=== PATIENT | female | born 1965 | race Caucasian/White ===

== ENCOUNTER 2016-10-25 12:11 | Inpatient (IN) | payer OTHER ==
[~2016-10-25] VITALS: Ht 170.2 cm; Wt 73.8 kg
[2016-10-25] MEDS ORDERED: ONDANSETRON (ODT) 4 MG TAB ODT STA (13:21)
[2016-10-25] MEDS ORDERED: HYDROCODONE/APAP (5/325) TAB PO ONE (13:30)
--- NOTE | 2016-10-25 14:36 | RADRPT ---
PROCEDURE: XR Sacrum and Coccyx. CLINICAL INDICATION: Trauma TECHNIQUE: AP and lateral views of the sacrum and coccyx were performed. COMPARISON: No prior studies are available for comparison. FINDINGS: There is a likely comminuted minimally displaced fracture at the left pubic body near the symphysis pubis. The SI joints are otherwise maintained and the visualized portions of the sacrum and coccyx are intact. IMPRESSION: 1. Minimally comminuted and minimally displaced fracture at the left pubic body. RPTAT: EE .Chemo Perdomo MD, MD Date Time Electronically viewed and signed by .Chemo Perdomo MD, on 10/25/2016 14:36 .d/
--- NOTE | 2016-10-25 14:37 | RADRPT ---
PROCEDURE: XR left Hip. CLINICAL INDICATION: Hip pain TECHNIQUE: AP and frog lateral views of the left hip were performed. COMPARISON: None. FINDINGS: There is a likely comminuted minimally displaced fracture at the left pubic body near the symphysis pubis. There is mild left hip arthrosis. Mild post-traumatic deformity of the femoral head versus remodelling. IMPRESSION: 1. Minimally comminuted and minimally displaced fracture at the left pubic body. 2. 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 3. Consider CT of the pelvis to exclude additional fractures. RPTAT: EE .Chemo Perdomo MD, MD Date Time Electronically viewed and signed by .Chemo Perdomo MD, on 10/25/2016 14:37 .d/
--- NOTE | 2016-10-25 14:38 | RADRPT ---
PROCEDURE: XR Elbow. CLINICAL INDICATION: Double pain TECHNIQUE: Three views of the left elbow are available for review COMPARISON: None available FINDINGS: There is a remote, ununited fracture of the olecranon process with sclerosis at the joint margins. The radiocapitellar articulation is maintained with marginal osteophytes at the margins. There is a lso osteophyte formation at the ulnohumeral articulation. A trace elbow joint effusion is present. IMPRESSION: 1. Remote, ununited and minimally displaced fracture of the olecranon process. 2. No definite acute fracture. 3. Mild degenerative changes at the elbow joint. RPTAT: EE .Chemo Perdomo MD, Date Time Electronically viewed and signed by .Chemo Perdomo MD, MD on 10/25/2016 14:37 .d/
--- NOTE | 2016-10-25 14:39 | RADRPT ---
PROCEDURE: pelvis. CLINICAL INDICATION: Fall TECHNIQUE: A single AP view the pelvis. COMPARISON: None FINDINGS: There is a likely comminuted minimally displaced fracture at the left pubic body near the symphysis pubis. There is mild left hip arthrosis. The right hip joint is maintained. Mild post-traumatic or surgical deformity of the femoral head versus remodelling. IMPRESSION: 1. Minimally comminuted and minimally displaced fracture at the left pubic body. 2. 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 3. Consider CT of the pelvis to exclude additional fractures. RPTAT: EE .Chemo Perdomo MD, Date Time Electronically viewed and signed by .Chemo Perdomo MD, on 10/25/2016 14:38 .d/
[2016-10-25] MEDS ORDERED: morphine 4 MG/ML VIAL IV STA (14:43)
[2016-10-25] MEDS ORDERED: ONDANSETRON 4 MG INJ IV STA (14:43)
[2016-10-25 15:54] LABS: ADD SCAN DIFF NO
[2016-10-25 15:56] LABS: BASOPHILS % 0.5 % (0.0-2.0); EOSINOPHILS # 0.2 10^3/ul (0.0-0.5); HEMATOCRIT 37.3 % (37.0-47.0); HEMOGLOBIN 11.8 g/dl (12.0-16.0); LYMPHOCYTES # 1.7 10^3/ul (0.8-2.9); LYMPHOCYTES % 21.6 % (15.0-51.0); MEAN CORPUSCULAR HEMOGLOBIN 31.2 pg (29.0-33.0); MEAN CORPUSCULAR HGB CONC 31.6 g/dl (32.0-37.0); MEAN CORPUSCULAR VOLUME 98.7 fl (82.0-101.0); MEAN PLATELET VOLUME 9.9 fl (7.4-10.4); MONOCYTE # 1.2 10^3/ul (0.3-0.9); MONOCYTES % 15.9 % (0.0-11.0); NEUTROPHIL # 4.6 10^3/ul (1.6-7.5); NEUTROPHILS % 59.7 % (39.0-77.0); PLATELET COUNT 279 10^3/UL (140-415); RED BLOOD COUNT 3.78 10^6/ul (4.20-5.40); RED CELL DISTRIBUTION WIDTH 13.2 % (11.5-14.5); WHITE BLOOD COUNT 7.7 10^3/ul (4.8-10.8)
--- NOTE | 2016-10-25 15:58 | RADRPT ---
PROCEDURE: Chest x-ray CLINICAL INDICATION: Preop TECHNIQUE: Chest single view COMPARISON: None FINDINGS: The heart is normal in size. The pulmonary vessels are normal in caliber. The lungs are clear. Th e costophrenic angles are sharp. The visualized bony thorax is unremarkable. IMPRESSION: No acute cardiopulmonary disease. RPTAT: HH .Natan Contreras MD, Date Time Electronically viewed and signed by .Natan Contreras MD, MD on 10/25/2016 15:58 .W/
[2016-10-25 16:26] LABS: INR 0.94; PARTIAL THROMBOPLASTIN TIME 28.6 Sec (25.0-35.0); PROTIME 12.6 Sec (12.2-14.2)
[2016-10-25 16:34] LABS: CALCIUM 9.4 mg/dl (8.4-10.2); CREATININE 0.64 mg/dl (0.44-1.00)
--- NOTE | 2016-10-25 17:09 | ERA ---
ER Documentation Chief Complaint Date/Time DATE: 10/25/16 TIME: 17:02 Chief Complaint gate fell on top of her 2 days ago, has back pain HPI This patient is a 51-year-old female with no significant medical history presenting to the emergency department for a gait falling on top of her to swap meet approximately 2 days ago. The gate fell onto her left hip and left elbow. She has been taking no medication for relief of symptoms at home. She is unable to ambulate well secondary to pain. The patient denies head injury or loss of consciousness. There are no other symptoms to report currently. ROS All systems reviewed and are negative except as per history of present illness. Medications Home Meds No Active Prescriptions or Reported Meds Allergies Allergies: Coded Allergies: Penicillins (Verified Allergy, Mild, 10/25/16) PMhx/Soc History of Surgery: Yes (right arm surgery) Anesthesia Reaction: No Hx Neurological Disorder: No Hx Respiratory Disorders: No Hx Cardiac Disorders: No Hx Psychiatric Problems: No Hx Miscellaneous Medical Probl: Yes (bulging disk) Hx Alcohol Use: Yes (drinka alcohol everyday) Hx Substance Use: No Hx Tobacco Use: No Smoking Status: Never smoker FmHx Noncontributory for chief complaint Physical Exam Vitals Vital Signs Date Time Temp Pulse Resp B/P Pulse Ox O2 Delivery O2 Flow Rate FiO2 10/25/16 12:34 98.6 99 20 128/80 99 Physical Exam Const: The patient is wheelchair-bound and appears to be in acute pain. Head: Atraumatic Eyes: Normal Conjunctiva ENT: Normal External Ears, Nose and Mouth. Neck: Full range of motion..~ No meningismus. Resp: Clear to auscultation bilaterally Cardio: Regular rate and rhythm, no murmurs Abd: Soft, non tender, non distended. Normal bowel sounds Skin: No petechiae or rashes Back: No midline or flank tenderness Ext: Unable to range of motion the left lower extremity secondary to pain. There is tenderness palpation of the left hip. There is tenderness to palpation of the left elbow and decreased range of motion secondary to pain. Neur: Awake and alert Psych: Normal Mood and Affect Result Diagram: 10/25/16 1535 10/25/16 1535 Results 24 hrs Laboratory Tests Test 10/25/16 15:35 White Blood Count 7.710^3/ul Red Blood Count 3.7810^6/ul Hemoglobin 11.8g/dl Hematocrit 37.3% Mean Corpuscular Volume 98.7fl Mean Corpuscular Hemoglobin 31.2pg Mean Corpuscular Hemoglobin Concent 31.6g/dl Red Cell Distribution Width 13.2% Platelet Count 83160^3/UL Mean Platelet Volume 9.9fl Neutrophils % 59.7% Lymphocytes % 21.6% Monocytes % 15.9% Eosinophils % 2.0% Basophils % 0.5% Nucleated Red Blood Cells % 0.0/100WBC Neutrophils # 4.610^3/ul Lymphocytes # 1.710^3/ul Monocytes # 1.210^3/ul Eosinophils # 0.210^3/ul Basophils # 0.010^3/ul Nucleated Red Blood Cells # 0.010^3/ul Prothrombin Time 12.6Sec Prothrombin Time Ratio 1.0 INR International Normalized Ratio 0.94 Activated Partial Thromboplast Time 28.6Sec Sodium Level 141mmol/L Potassium Level 4.0mmol/L Chloride Level 102mmol/L Carbon Dioxide Level 29mmol/L Anion Gap 14 Blood Urea Nitrogen 9mg/dl Creatinine 0.64mg/dl Glucose Level 119mg/dl Calcium Level 9.4mg/dl Current Medications Medications (Trade) Dose Ordered Sig/Fazal Route PRN Reason Start Time Stop Time Status Last Admin Dose Admin Acetaminophen/ Hydrocodone Bitart ([place] (5/325)) 1 tab ONCE ONCE PO 10/25/16 13:30 10/25/16 13:31 DC 10/25/16 13:45 Ondansetron HCl (Zofran Odt) 4 mg ONCE STAT ODT 10/25/16 13:21 10/25/16 13:24 DC 10/25/16 13:43 Morphine Sulfate (morphine) 4 mg ONCE STAT IV 10/25/16 14:43 10/25/16 14:45 DC 10/25/16 15:28 Ondansetron HCl (Zofran Inj) 4 mg ONCE STAT IV 10/25/16 14:43 10/25/16 14:45 DC 10/25/16 15:27 Procedures/MDM EMERGENCY DEPARTMENT COURSE / MEDICAL DECISION MAKING: This is a 51-year-old female who comes to the emergency room secondary to complaints of left hip and left elbow pain The patient was given p.o. Charlotte and IV morphine in the department. On re- evaluation, the patient was feeling improved. Lab results reviewed and showed no significant acute abnormalities. Radiology: PROCEDURE: Chest x-ray CLINICAL INDICATION: Preop TECHNIQUE: Chest single view COMPARISON: None FINDINGS: The heart is normal in size. The pulmonary vessels are normal in caliber. The lungs are clear. The costophrenic angles are sharp. The visualized bony thorax is unremarkable. IMPRESSION: No acute cardiopulmonary disease. RPTAT: HH .Natan Contreras MD, Date Time Electronically viewed and signed by .Natan Contreras MD, MD on 10/25/2016 15:58 .W/ CC: NIKIA CID PA-C PROCEDURE: XR Elbow. CLINICAL INDICATION: Double pain TECHNIQUE: Three views of the left elbow are available for review COMPARISON: None available FINDINGS: There is a remote, ununited fracture of the olecranon process with sclerosis at the joint margins. The radiocapitellar articulation is maintained with marginal osteophytes at the margins. There is also osteophyte formation at the ulnohumeral articulation. A trace elbow joint effusion is present. IMPRESSION: 1. Remote, ununited and minimally displaced fracture of the olecranon process. 2. No definite acute fracture. 3. Mild degenerative changes at the elbow joint. RPTAT: EE .Chemo Perdomo MD, MD Date Time Electronically viewed and signed by .Chemo Perdomo MD, MD on 10/25/2016 14:37 .d/ CC: NIIKA CID PA-C PROCEDURE: XR left Hip. CLINICAL INDICATION: Hip pain TECHNIQUE: AP and frog lateral views of the left hip were performed. COMPARISON: None. FINDINGS: There is a likely comminuted minimally displaced fracture at the left pubic body near the symphysis pubis. There is mild left hip arthrosis. Mild post- traumatic deformity of the femoral head versus remodelling. IMPRESSION: 1. Minimally comminuted and minimally displaced fracture at the left pubic body. 2. 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 3. Consider CT of the pelvis to exclude additional fractures. RPTAT: EE .Chemo Perdomo MD, MD Date Time Electronically viewed and signed by .Chemo Perdomo MD, MD on 10/25/2016 14:37 .d/ CC: NIKIA CID PA-C PROCEDURE: pelvis. CLINICAL INDICATION: Fall TECHNIQUE: A single AP view the pelvis. COMPARISON: None FINDINGS: There is a likely comminuted minimally displaced fracture at the left pubic body near the symphysis pubis. There is mild left hip arthrosis. The right hip joint is maintained. Mild post-traumatic or surgical deformity of the femoral head versus remodelling. IMPRESSION: 1. Minimally comminuted and minimally displaced fracture at the left pubic body. 2. 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 3. Consider CT of the pelvis to exclude additional fractures. RPTAT: EE .Chemo Perdomo MD, MD Date Time Electronically viewed and signed by .Chemo Perdomo MD, MD on 10/25/2016 14:38 .d/ CC: NIKIA CID PA-C PROCEDURE: XR Sacrum and Coccyx. CLINICAL INDICATION: Trauma TECHNIQUE: AP and lateral views of the sacrum and coccyx were performed. COMPARISON: No prior studies are available for comparison. FINDINGS: There is a likely comminuted minimally displaced fracture at the left pubic body near the symphysis pubis. The SI joints are otherwise maintained and the visualized portions of the sacrum and coccyx are intact. IMPRESSION: 1. Minimally comminuted and minimally displaced fracture at the left pubic body. RPTAT: EE .Chemo Perdomo MD, Date Time Electronically viewed and signed by .Chemo Perdomo MD, MD on 10/25/2016 14:36 .d/ CC: NIKIA CID PA-C EKG: Interpreted by ED physician Rate/Rhythm: Normal sinus rhythm with a rate of 91 bpm. QRS, ST, T-waves: No changes consistent w/ acute ischemia Impression: No evidence of ischemia or arrhythmia The primary diagnosis is pubic fracture. Secondary diagnosis is left sided olecranon fracture I have low suspicion for hip fracture, hip dislocation, septicemia, or other emergent conditions at this time. Discharge: I have discussed the lab results and diagnostic findings with the patient and answered any questions or concerns. The patient was admitted. Dr. León Hoffmann, attending ED physician spoke with the admitting physician. I consulted Dr. Tapia, on-call orthopedic surgeon who recommended keeping the left arm straight. He agreed with the ED course up until this point. Departure Diagnosis: Primary Impression: Pubic bone fracture Additional Impression: Closed olecranon fracture Condition: Fair NIKIA CID PA-C Oct 25, 2016 17:09 NIKIA CID PA-C Oct 25, 2016 17:09
[2016-10-25 17:34] VITALS: TEMP 98.1
[2016-10-25 17:55] VITALS: BP 120/74; PULSE 89; RESP 16; Ht 170.2 cm; Wt 73.8 kg
[2016-10-25] MEDS: morphine 2 MG INJ IV PRN ×2 (18:18→23:18)
[2016-10-25] MEDS ORDERED: ONDANSETRON 4 MG INJ IV PRN (18:30)
--- NOTE | 2016-10-25 18:42 | HP ---
Date/Time of Note Date/Time of Note DATE: 10/25/16 TIME: 18:10 Assessment/Plan VTE Prophylaxis VTE Prophylaxis Intervention: ambulation, SCD's Lines/Catheters IV Catheter Type (from Nrsg): Saline Lock Assessment/Plan Assessment/Plan 51 yo F who presented with L vulval pain after a gate fell on her with 1. L pubic rami fracture 2. Remote, ununited and minimally displaced fracture of the olecranon process. 3. Vulval /L hip pain 2/2 #1 PLAN: * admit for pain control and ortho review / supportive care HPI/ROS Admit Date/Time Admit Date/Time Oct 25, 2016 at 15:55 Hx of Present Illness PRESENTING COMPLAINT: L vulval pain and elbow pain HISTORY OF PRESENTING COMPLAINT: 51 yo F was at a swap meet and was trying to close a gate when the gate fell on her. She developed severe pain in L vulval area relieved only by IV meds given in ER. She is able to ambulate but with significant difficulty. ROS Constitutional: No chills, No febrile, No nausea, No poor po Eyes: no complaints ENT: no complaints Respiratory: no complaints Cardiovascular: no complaints Gastrointestinal: no complaints Genitourinary: no complaints Musculoskeletal: other (see hpi) Neurologic: no complaints PMH/Family/Social Past Medical History Medical History: no pertinent history Past Surgical History * Sx to R forearm Family History Significant Family History: no pertinent family hx Social History Alcohol Use: none Smoking Status: Never smoker Drug Use: none Exam/Review of Systems Vital Signs Vitals VS - Last 72 Hours, by Label Date Time Temp Pulse Resp B/P Pulse Ox O2 Delivery O2 Flow Rate FiO2 10/25/16 17:34 98.1 98 18 123/79 99 Room Air 10/25/16 12:34 98.6 99 20 128/80 99 Vital Signs Date Time Temp Pulse Resp B/P Pulse Ox O2 Delivery O2 Flow Rate FiO2 10/25/16 17:34 98.1 98 18 123/79 99 Room Air Exam Constitutional: alert, distress, oriented Psych: nl mood/affect Head: atraumatic, normocephalic Eyes: PERRL, No icteric ENMT: mucosa pink and moist Neck: supple Respiratory: clear to auscultation, normal air movement Cardiovascular: regular rate and rhythm, No murmurs/extra sounds Gastrointestinal: bowel sounds, non-tender, soft Extremities: No edema Neurological: nl mental status, nl speech, No focal weakness Skin: No rash or lesions Labs Result Diagram: 10/25/16 1535 10/25/16 1535 Procedures Procedures PROCEDURE: Chest x-ray CLINICAL INDICATION: Preop TECHNIQUE: Chest single view COMPARISON: None FINDINGS: The heart is normal in size. The pulmonary vessels are normal in caliber. The lungs are clear. The costophrenic angles are sharp. The visualized bony thorax is unremarkable. IMPRESSION: No acute cardiopulmonary disease. RPTAT: HH .Natan Contreras MD, Date Time Electronically viewed and signed by .Natan Contreras MD, MD on 10/25/2016 15:58 .W/ PROCEDURE: XR Elbow. CLINICAL INDICATION: Double pain TECHNIQUE: Three views of the left elbow are available for review COMPARISON: None available FINDINGS: There is a remote, ununited fracture of the olecranon process with sclerosis at the joint margins. The radiocapitellar articulation is maintained with marginal osteophytes at the margins. There is also osteophyte formation at the ulnohumeral articulation. A trace elbow joint effusion is present. IMPRESSION: 1. Remote, ununited and minimally displaced fracture of the olecranon process. 2. No definite acute fracture. 3. Mild degenerative changes at the elbow joint. RPTAT: EE .Chemo Perdomo MD, MD Date Time Electronically viewed and signed by .hCemo Perdomo MD, MD on 10/25/2016 14:37 .d/ PROCEDURE: XR left Hip. CLINICAL INDICATION: Hip pain TECHNIQUE: AP and frog lateral views of the left hip were performed. COMPARISON: None. FINDINGS: There is a likely comminuted minimally displaced fracture at the left pubic body near the symphysis pubis. There is mild left hip arthrosis. Mild post- traumatic deformity of the femoral head versus remodelling. IMPRESSION: 1. Minimally comminuted and minimally displaced fracture at the left pubic body. 2. 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 3. Consider CT of the pelvis to exclude additional fractures. RPTAT: EE .Chemo Perdomo MD, MD Date Time Electronically viewed and signed by .Chemo Perdomo MD, MD on 10/25/2016 14:37 .d/ PROCEDURE: pelvis. CLINICAL INDICATION: Fall TECHNIQUE: A single AP view the pelvis. COMPARISON: None FINDINGS: There is a likely comminuted minimally displaced fracture at the left pubic body near the symphysis pubis. There is mild left hip arthrosis. The right hip joint is maintained. Mild post-traumatic or surgical deformity of the femoral head versus remodelling. IMPRESSION: 1. Minimally comminuted and minimally displaced fracture at the left pubic body. 2. 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 3. Consider CT of the pelvis to exclude additional fractures. RPTAT: EE .Chemo Perdomo MD, Date Time Electronically viewed and signed by .Chemo Perdomo MD, MD on 10/25/2016 14:38 .d/ CC: NIKIA CID PA-Link PROCEDURE: XR Sacrum and Coccyx. CLINICAL INDICATION: Trauma TECHNIQUE: AP and lateral views of the sacrum and coccyx were performed. COMPARISON: No prior studies are available for comparison. FINDINGS: There is a likely comminuted minimally displaced fracture at the left pubic body near the symphysis pubis. The SI joints are otherwise maintained and the visualized portions of the sacrum and coccyx are intact. IMPRESSION: 1. Minimally comminuted and minimally displaced fracture at the left pubic body. RPTAT: EE .Chemo Perdomo MD, MD Date Time Electronically viewed and signed by .Chemo Perdomo MD, MD on 10/25/2016 14:36 .d/ CC: NIKIA CID PA-C, BOLATITO M. Oct 25, 2016 18:20
[2016-10-25 20:36] VITALS: BP 127/83; RESP 18
[2016-10-26 08:22] VITALS: BP 123/83; RESP 16
[2016-10-26] MEDS: DOCUSATE SODIUM 250 MG CAP PO SCH (08:28)
[2016-10-26] MEDS: FAMOTIDINE 20 MG TAB PO SCH (08:28)
[2016-10-26] MEDS: morphine 2 MG INJ IV PRN (08:28)
--- NOTE | 2016-10-26 08:34 | RADRPT ---
PROCEDURE: CT scan of the pelvis without IV contrast. CLINICAL INDICATION: Evaluate for pelvic fracture. The patient fell striking gate. TECHNIQUE: Thin section axial, coronal and sagittal images were performed through the abdomen and pelvis without contrast using a [employer] VCT General [employer] CT scanner. Radiation Dose: CTDI: 7.3 and DLP: 253 One or more of the following dose reduction techniques were used: - Automated exposure control. - Adjustment of the mA and/or kV according to patient size. Use of iterative reconstruction technique. COMPARISON: Chest x-ray 08/08/2016 06:18 a.m. FINDINGS: Soft tissues: Per there is a small soft tissue contusion in the midline of the pelvis superior to th e pubic symphysis. There is a small midline umbilical hernia. A fluid collections identified dorsa l to the midline of the rectus femoris muscles be the result of a small seroma hematoma or other layne ign fluid collection. Gastrointestinal: The colon and small bowel loops are unremarkable. The vermiform appendix is norm al. There is moderate fecal material in the rectosigmoid colon. There is a right inguinal hernia co ntaining fat. Urinary bladder : Normal. Lymph nodes: No enlarged inguinal or pelvic sidewall lymph nodes are identified. Reproductive system and pelvis : The uterus measured 10.9 cm sagittal by 4.7 cm AP by 6.5 cm transve rse. No abnormal adnexal mass or free fluid is noted in the pelvis. The ovaries are not well visual ized. Bony elements: Osteophytes narrow the right and left L4-5 nerve root foramina. There are degenerati ve changes in the articular facets at L4-5 and L5-S1. The hip joints are well maintained. Vasculature: Normal. IMPRESSION: 1. Soft tissue stranding is noted superior to the pubic symphysis which could be the result of a co ntusion. No acute fracture is identified. 2. A small fluid collection is noted between the rectus femoris muscles in the peritoneal cavity geovanni tral to the fundus of the uterus measuring 3.2 cm sagittal by 1.2 cm AP by 1.4 cm transverse. A sero ma or hematoma might present this fashion. 3. A small umbilical hernia containing fat is identified. 4. Diastasis rectus. 4. Osteoarthritis of the lower lumbar spine with L4-5 disk space narrowing and grade 1 anterolisthe sis of L4 relative to L5. 5. Bilateral old fractures of the L4 pars interarticularis. 6. A left inguinal hernia containing fat is identified. 7. 6.7 cm AP central pseudo disk protrusion associated with to be grade 1 anterolisthesis of L4 on L5. RPTAT:AAJJ Physician Tj Date Time Electronically viewed and signed by Adams Alexandra Physician on 10/26/2016 08:33 MAYE/
[2016-10-26] MEDS: HYDROCODONE/APAP (7.5/325) TAB PO PRN ×2 (13:04→18:57)
--- NOTE | 2016-10-26 14:34 | PN ---
Date/Time of Note Date/Time of Note DATE: 10/26/16 TIME: 14:32 Assessment/Plan VTE Prophylaxis VTE Prophylaxis Intervention: SCD's Lines/Catheters IV Catheter Type (from Nrsg): Saline Lock Urinary Cath still in place: No Assessment/Plan Assessment/Plan 51 yo F who presented with L vulval pain after a gate fell on her with 1. L pubic rami fracture 2. Remote, ununited and minimally displaced fracture of the olecranon process. 3. Vulval /L hip pain 2/2 #1 PLAN: * Official ortho review pending, but I spoke with Dr Tapia and patient may need surgery to repair hip * he also recommends complete bed rest till his review * Continue PRN pain control/ antiemetics/ antipyretics/ supportive care Subjective 24 Hr Interval Summary Free Text/Dictation still having pain Exam/Review of Systems Vital Signs Vitals Vital Signs Date Time Temp Pulse Resp B/P Pulse Ox O2 Delivery O2 Flow Rate FiO2 10/26/16 08:22 97.9 82 16 123/83 99 10/25/16 17:55 Room Air Intake and Output 10/25/16 10/25/16 10/26/16 15:00 23:00 07:00 Intake Total 1440 ml Output Total 1000 ml Balance 440 ml Exam Constitutional: alert, distress, oriented Psych: nl mood/affect Head: atraumatic, normocephalic Eyes: PERRL, No icteric ENMT: mucosa pink and moist Neck: supple Respiratory: clear to auscultation, normal air movement Cardiovascular: regular rate and rhythm, No murmurs/extra sounds Gastrointestinal: bowel sounds, non-tender, soft Extremities: No edema Neurological: nl mental status, nl speech, No focal weakness Skin: No rash or lesions Results Result Diagram: 10/25/16 1535 10/25/16 1535 Results 24 hrs Laboratory Tests Test 10/25/16 15:35 White Blood Count 7.7 Red Blood Count 3.78 L Hemoglobin 11.8 L Hematocrit 37.3 Mean Corpuscular Volume 98.7 Mean Corpuscular Hemoglobin 31.2 Mean Corpuscular Hemoglobin Concent 31.6 L Red Cell Distribution Width 13.2 Platelet Count 279 Mean Platelet Volume 9.9 Neutrophils % 59.7 Lymphocytes % 21.6 Monocytes % 15.9 H Eosinophils % 2.0 Basophils % 0.5 Nucleated Red Blood Cells % 0.0 Neutrophils # 4.6 Lymphocytes # 1.7 Monocytes # 1.2 H Eosinophils # 0.2 Basophils # 0.0 Nucleated Red Blood Cells # 0.0 Prothrombin Time 12.6 Prothrombin Time Ratio 1.0 INR International Normalized Ratio 0.94 Activated Partial Thromboplast Time 28.6 Sodium Level 141 Potassium Level 4.0 Chloride Level 102 Carbon Dioxide Level 29 Anion Gap 14 Blood Urea Nitrogen 9 Creatinine 0.64 Glucose Level 119 Calcium Level 9.4 Medications Medications Current Medications Acetaminophen/ Hydrocodone Bitart ([place] (7.5-325)) 1 tab Q6H PRN PO pain Last administered on 10/26/16 13:04; Admin Dose 1 TAB; Start 10/25/16 at 18:30 Ondansetron HCl (Zofran Inj) 4 mg Q6H PRN IV NAUSEA AND/OR VOMITING; Start at 18:30 Famotidine (Pepcid) 20 mg DAILY PO Last administered on 10/26/16 08:28; Admin Dose 20 MG; Start 10/26/16 at 09:00 Docusate Sodium (Colace) 250 mg DAILY PO Last administered on 10/26/16 08:28; Admin Dose 250 MG; Start 10/26/16 at 09:00 Morphine Sulfate (morphine) 2 mg Q4H PRN IV breakthrough pain Last administered on 10/26/16 08:28; Admin Dose 2 MG; Start 10/25/16 at 18:30 SATINDER ALLEN Oct 26, 2016 14:34
--- NOTE | 2016-10-26 18:47 | CONS ---
DATE OF ADMISSION: 10/25/2016 DATE OF CONSULTATION: 10/26/2016 ORTHOPEDIC SURGICAL CONSULTATION HISTORY OF PRESENT ILLNESS: The patient is a 51-year-old female who was admitted on 10/25/2016 when she came to the emergency room complaining of pain involving her left groin. According to the christi ent, a gait ____ fell on her while she was trying to close it. Following the incident, she was havi ng pain in her left groin, and she came to the emergency room. According to the nursing staff, she was able to stand up and walk to the bathroom with a walker with out too much discomfort. PHYSICAL EXAMINATION: My examination revealed a 51-year-old female who was not in any acute distres s. There was mild tenderness over the left groin, which is more noticeable during the range of jag on of the left hip. There were no shortening or abnormal rotation of the left lower extremity. There were no signs of acute trauma around the left elbow. There was no ecchymosis, no abrasions an d no unusual swelling. Range of motion of the left elbow was full and pain free. IMAGING: X-rays of the left elbow revealed an olecranon fracture which seems to be healed. The x-r ay and CT scan of the pelvis revealed presence of an undisplaced fracture involving the left superio r pubic ramus near symphysis pubis. Again, fracture is undisplaced. DIAGNOSTIC IMPRESSION: 1. Pelvic fracture involving the left superior pubic ramus, near symphysis pubis, undisplaced. 2. Old fracture of the left olecranon process, 8 years old according to the patient, healed in acce ptable alignment. RECOMMENDATIONS FOR MANAGEMENT: Ambulation with or without a walker with full weightbearing. No tr eatment for left elbow at this time. Dictated By: DINH CANALES/LYNDA Conf#: [id number] DID#: [id number]
[2016-10-26 20:15] VITALS: BP 119/74; RESP 20
[2016-10-27] MEDS: HYDROCODONE/APAP (7.5/325) TAB PO PRN ×3 (01:02→18:19)
[2016-10-27 07:49] VITALS: BP 122/78; RESP 18
[2016-10-27] MEDS: DOCUSATE SODIUM 250 MG CAP PO SCH (09:51)
[2016-10-27] MEDS: FAMOTIDINE 20 MG TAB PO SCH (09:51)
--- NOTE | 2016-10-27 11:54 | PN ---
Date/Time of Note Date/Time of Note DATE: 10/27/16 TIME: 11:53 Assessment/Plan VTE Prophylaxis VTE Prophylaxis Intervention: SCD's Lines/Catheters IV Catheter Type (from Nrsg): Saline Lock Urinary Cath still in place: No Assessment/Plan Chief Complaint/Hosp Course Assessment/Plan 51 yo F who presented with L vulval pain after a gate fell on her with 1. L pubic rami fracture 2. Remote, ununited and minimally displaced fracture of the olecranon process. 3. Vulval /L hip pain 2/2 #1 PLAN: * per ortho Dr Tapia ambulation with or without a walker with full weightbearing. No treatment for left elbow at this time. * Continue PRN pain control/ antiemetics/ antipyretics/ supportive care Problems: Subjective 24 Hr Interval Summary Free Text/Dictation Pt seen by ortho team yesterday. Ambulating with FWW. Exam/Review of Systems Vital Signs Vitals Vital Signs Date Time Temp Pulse Resp B/P Pulse Ox O2 Delivery O2 Flow Rate FiO2 10/27/16 07:49 97.9 74 18 122/78 99 10/25/16 17:55 Room Air Intake and Output 10/26/16 10/26/16 10/27/16 15:00 23:00 07:00 Intake Total 1200 ml 360 ml Output Total 850 ml Balance 350 ml 360 ml Exam Constitutional: alert, distress, oriented Psych: nl mood/affect Head: atraumatic, normocephalic Eyes: PERRL, No icteric ENMT: mucosa pink and moist Neck: supple Respiratory: clear to auscultation, normal air movement Cardiovascular: regular rate and rhythm, No murmurs/extra sounds Gastrointestinal: bowel sounds, non-tender, soft Extremities: No edema Neurological: nl mental status, nl speech, No focal weakness Skin: No rash or lesions Results Result Diagram: 10/25/16 1535 10/25/16 1535 Medications Medications Current Medications Acetaminophen/ Hydrocodone Bitart ([place] (7.5-325)) 1 tab Q6H PRN PO pain Last administered on 10/27/16t 09:51; Admin Dose 1 TAB; Start 10/25/16 at 18:30 Ondansetron HCl (Zofran Inj) 4 mg Q6H PRN IV NAUSEA AND/OR VOMITING; Start at 18:30 Famotidine (Pepcid) 20 mg DAILY PO Last administered on 10/27/16 09:51; Admin Dose 20 MG; Start 10/26/16 at 09:00 Docusate Sodium (Colace) 250 mg DAILY PO Last administered on 10/27/16 09:51; Admin Dose 250 MG; Start 10/26/16 at 09:00 Morphine Sulfate (morphine) 2 mg Q4H PRN IV breakthrough pain Last administered on 10/26/16 08:28; Admin Dose 2 MG; Start 10/25/16 at 18:30 MARA GÓMEZ Oct 27, 2016 11:54
[2016-10-27 19:33] VITALS: BP 118/73; RESP 18
[2016-10-27] MEDS ORDERED: DIPHENHYDRAMINE 25 MG CAP PO PRN (21:30)
[2016-10-28] MEDS: HYDROCODONE/APAP (7.5/325) TAB PO PRN ×2 (05:14→13:15)
--- NOTE | 2016-10-28 11:42 | PN ---
Date/Time of Note Date/Time of Note DATE: 10/28/16 TIME: 11:41 Assessment/Plan VTE Prophylaxis VTE Prophylaxis Intervention: SCD's Lines/Catheters IV Catheter Type (from Nrsg): Saline Lock Urinary Cath still in place: No Assessment/Plan Chief Complaint/Hosp Course Assessment/Plan 51 yo F who presented with L vulval pain after a gate fell on her with 1. L pubic rami fracture 2. Remote, ununited and minimally displaced fracture of the olecranon process. 3. Vulval /L hip pain 2/2 #1 PLAN: * per ortho Dr Tapia ambulation with or without a walker with full weightbearing. No treatment for left elbow at this time. Awaiting PT and OT eval's * Continue PRN pain control/ antiemetics/ antipyretics/ supportive care Problems: Subjective 24 Hr Interval Summary Free Text/Dictation Pt ambulating with FWW, no acute events overnight. Awaiting PT and OT eval's now. Exam/Review of Systems Vital Signs Vitals Vital Signs Date Time Temp Pulse Resp B/P Pulse Ox O2 Delivery O2 Flow Rate FiO2 10/27/16 19:33 97.9 97 18 118/73 99 10/25/16 17:55 Room Air Intake and Output 10/27/16 10/27/16 10/28/16 15:00 23:00 07:00 Intake Total 300 ml Balance 300 ml Exam Constitutional: alert, distress, oriented Psych: nl mood/affect Head: atraumatic, normocephalic Eyes: PERRL, No icteric ENMT: mucosa pink and moist Neck: supple Respiratory: clear to auscultation, normal air movement Cardiovascular: regular rate and rhythm, No murmurs/extra sounds Gastrointestinal: bowel sounds, non-tender, soft Extremities: No edema Neurological: nl mental status, nl speech, No focal weakness Skin: No rash or lesions Results Result Diagram: 10/25/16 1535 10/25/16 1535 Medications Medications Current Medications Acetaminophen/ Hydrocodone Bitart ([place] (7.5-325)) 1 tab Q6H PRN PO pain Last administered on 10/28/16t 05:14; Admin Dose 1 TAB; Start 10/25/16 at 18:30 Ondansetron HCl (Zofran Inj) 4 mg Q6H PRN IV NAUSEA AND/OR VOMITING; Start at 18:30 Famotidine (Pepcid) 20 mg DAILY PO Last administered on 10/27/16 09:51; Admin Dose 20 MG; Start 10/26/16 at 09:00 Docusate Sodium (Colace) 250 mg DAILY PO Last administered on 10/27/16 09:51; Admin Dose 250 MG; Start 10/26/16 at 09:00 Morphine Sulfate (morphine) 2 mg Q4H PRN IV breakthrough pain Last administered on 10/26/16 08:28; Admin Dose 2 MG; Start 10/25/16 at 18:30 Diphenhydramine HCl (Benadryl) 25 mg Q6H PRN PO ITCHING Last administered on 22:20; Admin Dose 25 MG; Start 10/27/16 at 21:30 MARA GÓMEZ Oct 28, 2016 11:42
[2016-10-28] MEDS: DOCUSATE SODIUM 250 MG CAP PO SCH (12:10)
[2016-10-28] MEDS: FAMOTIDINE 20 MG TAB PO SCH (12:10)
--- NOTE | 2016-10-28 15:14 | PDOCDIS ---
Discharge Instructions CONDITION Patient Condition: Stable HOME CARE INSTRUCTIONS: Diet Instructions: RegularSpecial Diet: REGULAR ACTIVITY: Activity Restrictions: Slowly Increase Activity Rest between Activity Avoid heavy lifting Do not Drive Do not operate Power Tool Avoid Heavy Housework Keep Limb Elevated FOLLOW UP/APPOINTMENTS Appointments Please take your medications as prescribed, and see your doctor in 1 week. MARA GÓMEZ Oct 28, 2016 15:14
[2016-10-28] MEDS ORDERED: HYDR-3605 PO (15:15)
--- NOTE | 2016-10-28 15:44 | DS ---
DATE OF ADMISSION: 10/25/2016 DATE OF DISCHARGE: 10/28/2016 HOSPITAL COURSE: A 51-year-old female originally admitted on 10/25/2014 being discharged home on . The patient came in with left vulvar pain after falling on a gate outside the hospital. She was found with a left pubic ramus fracture and there was a remote ununited and minimally displac ed fracture of the olecranon process of the left elbow. The patient was admitted, seen by orthopedi c surgery team who recommended medical treatment, no indication for surgical intervention. The christi ent was given pain control medications. She was ambulating with a front-wheel walker. The olecrano n fracture of the left elbow was found to be at least 8 years old according to the patient, so that was healing in acceptable alignment. The pelvic fracture, however, was acute, involving the left fournier perior pubic ramus near the symphysis pubis, undisplaced. Again, the patient was ambulating with a front-wheel walker, given pain control medications. She was able to ambulate with assistance and to lerate a p.o. diet. Her vital signs were stable on the day of discharge. After getting clearance f rom orthopedic surgery team and from physical therapy team, it is recommended that the patient will be discharged home today with a front-wheel walker in improved condition. She also will get [place] 7 .5/325 one tab p.o. q.6h. p.r.n. She will need to follow up with primary care doctor in clinic in t he next 1 to 2 weeks. FINAL DIAGNOSES: 1. Status post fall with pelvic fracture involving the left superior pubic ramus near the symphysis pubis, undisplaced, medical management. 2. Old fracture of the left olecranon process 8 years old according to the patient, healing in acce ptable alignment. Time spent discharging the patient 35 minutes. Dictated By: MARA SOLORZANO Conf#: [id number] DID#: [id number]
== END 2016-10-28 16:00 | disposition home or self-care (01) | DRG 536 ==
LOC: FTE 12:11 → MS1 15:55
PROVIDERS: ADMIT Family Medicine; ATTEND Family Medicine
DX: S32.592A Other specified fracture of left pubis, initial encounter for closed fracture (principal); Z87.81 Personal history of (healed) traumatic fracture; W20.8XXA Other cause of strike by thrown, projected or falling object, initial encounter; Y92.89 Other specified places as the place of occurrence of the external cause
CPT/HCPCS: 71010; 72170; 72192; 72220; 73510; 80048; 85025; 85610; 85730; 93005; 97162; J2270; J2405